=== PATIENT | female | born 1955 | race Caucasian/White ===

== ENCOUNTER → 2020-06-27 09:39 | Outpatient (CLI) | payer MEDICARE, MEDICAID, SELFPAY ==
--- NOTE | 2020-06-27 09:51 | XR_ITS ---
PROCEDURE: XR KNEE RT 4V CLINICAL INDICATION: rt knee pain COMPARISON: No exams were available for comparison FINDINGS: There is severe osteoarthritis of the lateral compartment and patellofemoral joint. The patella is subluxed laterally. There is loss of joint space laterally with mild genu valgum. Hypertrophic changes/osteophytes noted laterally at the knee joint. There are mild osteoarthritic changes of the medial compartment and severe osteoarthritis of the patellofemoral joint. No acute fracture or dislocation. IMPRESSION: The severe osteoarthritis with genu valgum Dictated by: Sylvain Huntley MD 06/27/2020 15:03 Sylvain Huntley MD in [facility] 06/27/2020 15:03
== END ==
PROVIDERS: PCP Family Medicine; Visit Provider Orthopaedic Surgery
DX: M25.561 Pain in right knee (principal)
CPT/HCPCS: 73564